=== PATIENT | male | born 1935 | race Two or more races ===

== ENCOUNTER 2018-04-13 12:56 | Emergency (ER) | payer MEDICARE, BC ==
[2018-04-13 13:00] VITALS: TEMP 98
--- NOTE | 2018-04-13 13:09 | ED ---
General Adult HPI - General Chief complaint: Recheck/Abnormal Lab/Rx Stated complaint: abnormal labs Time Seen by Provider: 04/13/18 13:00 Source: patient, RN notes reviewed Mode of arrival: ambulatory Limitations: no limitations - History of Present Illness Initial comments: Patient 83-year-old male presented to the emergency room today with a chief complaint of an abnormal lab. Patient does admit that he had blood work obtained earlier today and was told that his INR was greater than 8. Patient does admit that he is on warfarin due to history of A. fib. He states he's been on this for approximately year and a half. He states not had any competitions. Patient does admit that he had diarrhea week ago that has improved. He states there has been no evidence for any blood in the stool. No dark stools. He denies any other complaints or symptoms. Patient denies any recent fever, chills, shortness of breath, chest pain, back pain, abdominal pain , nausea or vomiting, headaches or visual changes, or any other complaints. - Related Data Allergies Allergy/AdvReac Type Severity Reaction Status Date / Time No Known Allergies Allergy Verified 04/13/18 12:57 Review of Systems ROS Statement: Those systems with pertinent positive or pertinent negative responses have been documented in the HPI. ROS Other: All systems not noted in ROS Statement are negative. Past Medical History Past Medical History: Atrial Fibrillation, Diabetes Mellitus, Hyperlipidemia, Hypertension History of Any Multi-Drug Resistant Organisms: None Reported Past Surgical History: Hernia Repair Past Psychological History: No Psychological Hx Reported Smoking Status: Never smoker Past Alcohol Use History: None Reported Past Drug Use History: None Reported General Exam - General Exam Comments Initial Comments: General: The patient is awake and alert, in no distress, and does not appear acutely ill. Eye: Extra-ocular movements are intact. There is normal conjunctiva bilaterally. No signs of icterus. Ears, nose, mouth and throat: There are moist mucous membranes and no oral lesions. Neck: The neck is supple, there is no tenderness or JVD. Cardiovascular: There is a regular rate with irregular rhythm. No murmur, rub or gallop is appreciated. Respiratory: Lungs are clear to auscultation, respirations are non-labored, breath sounds are equal. No wheezes, stridor, rales, or rhonchi. Musculoskeletal: Normal ROM, no tenderness. Sensation intact. Neurological: A&O x 3. CN II-XII intact, There are no obvious motor or sensory deficits. Coordination appears grossly intact. Speech is normal. Skin: Skin is warm and dry and no rashes or lesions are noted. Psychiatric: Cooperative, appropriate mood & affect, normal judgment. Limitations: no limitations Course Vital Signs 04/13/18 12:57 Temperature 98 F Pulse Rate 85 Respiratory 18 Rate Blood Pressure 140/78 O2 Sat by Pulse 96 Oximetry Medical Decision Making - Medical Decision Making Patient reexamined at this time shows no signs or evidence of bleeding. Patient 's labs reviewed does show INR 7.9. Patient's been advised to hold his warfarin and have lab redrawn in 4 days. It is advised that he should return to emergency room for any injuries or any other complaints. - Lab Data Result diagrams: 04/13/18 13:15 04/13/18 13:15 Lab Results 04/13/18 04/13/18 04/13/18 Range/Units 13:15 13:15 13:15 WBC 7.9 (3.8-10.6) k/uL RBC 5.00 (4.30-5.90) m/uL Hgb 15.6 (13.0-17.5) gm/dL Hct 46.6 (39.0-53.0) % MCV 93.2 (80.0-100.0) fL MCH 31.2 (25.0-35.0) pg MCHC 33.4 (31.0-37.0) g/dL RDW 12.6 (11.5-15.5) % Plt Count 275 (150-450) k/uL Neutrophils % (Manual) 57 % Lymphocytes % (Manual) 24 % Monocytes % (Manual) 17 % Eosinophils % (Manual) 2 % Neutrophils # (Manual) 4.50 (1.3-7.7) k/uL Lymphocytes # (Manual) 1.90 (1.0-4.8) k/uL Monocytes # (Manual) 1.34 H (0-1.0) k/uL Eosinophils # (Manual) 0.16 (0-0.7) k/uL Nucleated RBCs 0 (0-0) /100 WBC Manual Slide Review Performed RBC Morphology Normal PT 73.4 H (9.0-12.0) sec INR 7.9 H* (<1.2) APTT 40.6 H (22.0-30.0) sec Sodium 141 (137-145) mmol/L Potassium 3.7 (3.5-5.1) mmol/L Chloride 107 (98-107) mmol/L Carbon Dioxide 24 (22-30) mmol/L Anion Gap 10 mmol/L BUN 18 (9-20) mg/dL Creatinine 0.96 (0.66-1.25) mg/dL Est GFR (CKD-EPI)AfAm 85 (>60 ml/min/1.73 sqM) Est GFR (CKD-EPI)NonAf 74 (>60 ml/min/1.73 sqM) Glucose 147 H (74-99) mg/dL Calcium 9.0 (8.4-10.2) mg/dL Total Bilirubin 1.0 (0.2-1.3) mg/dL AST 38 (17-59) U/L ALT 34 (21-72) U/L Alkaline Phosphatase 76 (38-126) U/L Total Protein 6.2 L (6.3-8.2) g/dL Albumin 3.7 (3.5-5.0) g/dL Disposition Clinical Impression: Elevated INR Disposition: HOME SELF-CARE Condition: Good Additional Instructions: Please hold warfarin until blood was redrawn this coming Tuesday as discussed. Please return here to the emergency room for any other concerns. Is patient prescribed a controlled substance at d/c from ED?: No Referrals: [facility],Clinic [Primary Care Provider] - 1-2 days Time of Disposition: 14:24
[2018-04-13 13:29] LABS: HCT 46.6 % (39.0-53.0); HGB 15.6 gm/dL (13.0-17.5); MCH 31.2 pg (25.0-35.0); MCHC 33.4 g/dL (31.0-37.0); MCV 93.2 fL (80.0-100.0); Mean Platelet Volume 6.9; Platelet Count 275 k/uL (150-450); RDW 12.6 % (11.5-15.5); WBC 7.9 k/uL (3.8-10.6)
[2018-04-13 13:50] LABS: Albumin 3.7 g/dL (3.5-5.0); Potassium 3.7 mmol/L (3.5-5.1); Total Protein 6.2 g/dL (6.3-8.2)
[2018-04-13 13:52] LABS: Partial Thromboplastin Time 40.6 sec (22.0-30.0)
[2018-04-13 13:53] LABS: Prothrombin Time 73.4 sec (9.0-12.0)
[2018-04-13 13:54] LABS: Eosinophils # (M) 0.16 k/uL (0-0.7); Monocytes # (M) 1.34 k/uL (0-1.0); Neutrophils % (M) 57 %; Nucleated Red Blood Cells 0 /100 WBC (0-0); Total Cells Counted 100
[2018-04-13 14:07] LABS: INR 7.9 (<1.2)
[2018-04-13 14:32] VITALS: BP 136/71; PULSE 88; RESP 16
== END 2018-04-13 14:32 | disposition home or self-care (01) ==
LOC: EC 12:56
DX: R79.1 Abnormal coagulation profile (principal); I48.91 Unspecified atrial fibrillation; Z79.01 Long term (current) use of anticoagulants
CPT/HCPCS: 36415; 80053; 85025; 85610; 85730; 99283